=== PATIENT | male | born 1970 | race Caucasian/White ===

== ENCOUNTER 2021-07-24 17:12 | Emergency (ER) | payer OTHER ==
[~2021-07-24] VITALS: Ht 185.4 cm; Wt 100.7 kg
[2021-07-24] MEDS ORDERED: DOXYCYCLINE MO100 M1 PO (17:43)
[2021-07-24] MEDS ORDERED: IBUPROFEN600 MG PO (17:43)
[2021-07-24] MEDS ORDERED: ONDANSETRON ODT8 MG PO (17:43)
[2021-07-24] MEDS ORDERED: MUPIROCIN22 GM TOP (17:53)
== END 2021-07-24 18:02 | disposition home or self-care (01) ==
LOC: EDSEX 17:12 → ER 17:22
DX: K13.0 Diseases of lips (principal); L02.413 Cutaneous abscess of right upper limb; L02.811 Cutaneous abscess of head [any part, except face]; Z86.14 Personal history of Methicillin resistant Staphylococcus aureus infection
CPT/HCPCS: 99282

== ENCOUNTER 2022-04-27 12:15 | Emergency (ER) | payer OTHER ==
[~2022-04-27] VITALS: Ht 185.4 cm; Wt 102.5 kg
[~2022-04-27 12:15] MED LIST: DOXYCYCLINE MO100 M1 PO; IBUPROFEN600 MG PO; MUPIROCIN22 GM TOP; ONDANSETRON ODT8 MG PO
[2022-04-27 12:58] LABS: BASOPHILS # (AUTO) 0.1 (0.0-0.1); BASOPHILS % 0.6 % (0.0-1.0); EOSINOPHILS # (AUTO) 0.2 (0.0-0.4); EOSINOPHILS % 1.9 % (0.0-6.0); HEMOGLOBIN 14.5 g/dL (14.0-18.0); LYMPHOCYTES # (AUTO) 2.1 (1.0-3.2); LYMPHOCYTES % 24.6 % (18.0-39.1); MEAN CORPUSCULAR HEMOGLOBIN 30.7 pg (28-32); MONOCYTES # (AUTO) 0.5 (0.2-0.8); MONOCYTES % 5.7 % (4.4-11.3); NEUTROPHILS # (AUTO) 5.7 (2.1-6.9); NEUTROPHILS % 66.7 % (38.7-80.0); PLATELET COUNT 294 x10e3/uL (140-360); RED BLOOD COUNT 4.73 x10e6/uL (4.3-5.7); RED CELL DISTRIBUTION WIDTH 11.6 % (11.7-14.4)
[2022-04-27 13:15] LABS: ALBUMIN 4.3 g/dL (3.5-5.0); ALBUMIN/GLOBULIN RATIO 1.4 (0.8-2.0); ANION GAP 14.2 mmol/L (8-16); CREATININE, SERUM 1.02 mg/dL (0.72-1.25); POTASSIUM 4.2 mmol/L (3.5-5.1)
[2022-04-27] MEDS ORDERED: IOPAMIDOL 370 MG/ML 100 ML INFUS..BTL INJ ONE (13:36)
[2022-04-27] MEDS ORDERED: MIRALAX17 GM PO (14:18)
== END 2022-04-27 14:38 | disposition home or self-care (01) ==
LOC: ER 12:22
DX: R10.30 Lower abdominal pain, unspecified (principal); K76.0 Fatty (change of) liver, not elsewhere classified; K59.00 Constipation, unspecified; E11.65 Type 2 diabetes mellitus with hyperglycemia; E78.5 Hyperlipidemia, unspecified; F41.9 Anxiety disorder, unspecified; F32.A Depression, unspecified
CPT/HCPCS: 36415; 74177; 80053; 83690; 85025; 93005; 99284; Q9967